=== PATIENT | female | born 1945 | race Caucasian/White ===

== ENCOUNTER → 2016-05-29 | Outpatient (CLI) | payer MEDICARE, OTHER ==
--- NOTE | 2016-05-29 09:22 | Diagnostic Imaging Report ---
PROCEDURE: US Gallbladder. TECHNIQUE: Multiple real-time grayscale images were obtained over the right upper quadrant in various projections. INDICATION: Diarrhea. The gallbladder appeared normal. The liver parenchyma appeared normal. There is no pathological dilatation of the intrahepatic or extrahepatic bile ducts. No ascites or perihepatic fluid collection. The right kidney is unobstructed. It is partially obscured from visualization by some adjacent overlying bowel gas. It measures at least 8.0 cm x 4.6 cm. Its adequately visualized cortex appeared normal in thickness and echotexture. It showed no solid or cystic mass or stone. IMPRESSION: Right kidney measures somewhat small, but this may be in part technical. It is unobstructed and appeared nonfocal and nonacute. There is no hepatobiliary abnormality, ascites, or fluid collection. Dictated by: Dictated on workstation # [id number]
== END ==
LOC: RAD 06:48
PROVIDERS: ATTEND Family Medicine
DX: R19.7 Diarrhea, unspecified (principal)
CPT/HCPCS: 76705

== ENCOUNTER → 2016-06-23 | Outpatient (CLI) | payer MEDICARE, OTHER ==
[~2016-06-23] MED LIST: CATHETER FLUSH 10 ML SYR IV PRN
[2016-06-23 10:08] LABS: BLOOD UREA NITROGEN 23 MG/DL (7-18); BUN/CREATININE RATIO 27; CREATININE SERUM 0.85 MG/DL (0.60-1.30); GFR ESTIMATED > 60
--- NOTE | 2016-06-23 12:54 | Diagnostic Imaging Report ---
EXAMINATION: HIDA with EF measurements Indication: Abdominal pain TECHNIQUE: After the intravenous administration of 5.2 mCi of Tc 99m Choletec, imaging over the abdomen was obtained. This was followed by administration of Ensure orally to stimulate intrinsic CCK secretion, followed by continued imaging with ejection fraction measured. FINDINGS: There is homogeneous uptake in the liver with prompt bile duct and gallbladder filling seen. Bowel activity is seen at 35 minutes. Based on further imaging and gallbladder area of interest activity measurements after the administration of Ensure, the gallbladder ejection fraction is estimated at 79%. IMPRESSION: 1. Normal hepatobiliary uptake and Gallbladder filling. 2. Normal gallbladder ejection fraction. Dictated by: Dictated on workstation # [id number]
== END ==
LOC: CARD 09:35
PROVIDERS: ATTEND Family Medicine
DX: R19.7 Diarrhea, unspecified (principal)
CPT/HCPCS: 36415; 78227; 82565; 84520

== ENCOUNTER → 2017-01-01 | Outpatient (CLI) | payer MEDICARE, OTHER ==
--- NOTE | 2017-01-01 13:55 | Diagnostic Imaging Report ---
EXAMINATION: DEXA scan. INDICATION: Osteopenia TECHNIQUE: Bone mineral density estimated based on dual energy radiography over the lumbar spine and femoral necks, was performed. FINDINGS: The lumbar spine T-score is -2. This is 4.7% increased density measurement compared to 12/01/2013. T score over the left femoral neck is -2.8 and on the right side is -3. This is 6% decreased density measurements compared to 2014 exam. IMPRESSION: Osteoporosis. Dictated by: Dictated on workstation # [id number]
--- NOTE | 2017-01-02 13:55 | Diagnostic Imaging Report ---
Bilateral screening mammogram 2D views with tomosynthesis. The current study was also evaluated with a Computer Aided Detection (CAD) system. INDICATION: Screening. No current complaints stated on the questionnaire. COMPARISON: . FINDINGS: The breasts are composed of heterogeneous fibroglandular tissue which may decrease mammographic sensitivity. Benign-appearing calcifications are seen. Allowing for technique and positional differences, no suspicious change is seen. IMPRESSION: Dense breasts with no definite change. ACR BI-RADS Category 2: Benign findings. Result letter will be mailed to the patient. Note: At least 10% of breast cancer is not imaged by mammography. Dictated on workstation # [id number]
== END ==
LOC: RAD 07:55
PROVIDERS: ATTEND Family Medicine
DX: Z12.31 Encounter for screening mammogram for malignant neoplasm of breast (principal); M81.0 Age-related osteoporosis without current pathological fracture
CPT/HCPCS: 77067; 77080

== ENCOUNTER → 2019-04-28 | Outpatient (CLI) | payer MEDICARE, OTHER ==
--- NOTE | 2019-04-28 11:37 | Diagnostic Imaging Report ---
INDICATION: Routine screening. COMPARISON: Comparison is made with prior mammograms from 01/01/2017 and 12/01/2013. TECHNIQUE: 2-D and 3-D bilateral screening mammography was performed. The current study was also evaluated with a Computer Aided Detection (CAD) system. 3-D tomosynthesis was also performed and reviewed. FINDINGS: Both breasts are heterogeneously dense, limiting the sensitivity of mammography. The parenchymal pattern is stable. No dominant mass or malignant-appearing microcalcifications are seen. There is an intraparenchymal lymph node in the upper-outer left breast. Axillae are unremarkable. IMPRESSION: No mammographic features suspicious for malignancy are identified. ACR BI-RADS Category 2: Benign findings. Result letter will be mailed to the patient. Note: At least 10% of breast cancer is not imaged by mammography. Dictated by: Dictated on workstation # [id number]
== END ==
LOC: RAD 09:09
PROVIDERS: ATTEND Nurse Practitioner Family
DX: Z12.31 Encounter for screening mammogram for malignant neoplasm of breast (principal)
CPT/HCPCS: 77067

== ENCOUNTER → 2021-02-20 | Outpatient (CLI) | payer MEDICARE, OTHER ==
--- NOTE | 2021-02-20 08:51 | Diagnostic Imaging Report ---
Indication: Chronic left knee pain. TIME OF EXAM: 8:39 AM 3 views of the left knee were obtained. Severe medial compartment degenerative change with joint space narrowing and marginal spurring is noted. There is more milder degenerative changes of the lateral compartment and patellofemoral compartment. Chondrocalcinosis of both the medial and lateral compartments is noted. No fracture, dislocation or effusion is seen. IMPRESSION: Degenerative changes. No acute abnormality is detected. Dictated by: Dictated on workstation # [id number]
== END ==
LOC: RAD FS 08:30
PROVIDERS: ATTEND Nurse Practitioner
DX: M17.12 Unilateral primary osteoarthritis, left knee (principal)
CPT/HCPCS: 73562

== ENCOUNTER → 2021-09-10 | Outpatient (CLI) | payer MEDICARE, OTHER ==
--- NOTE | 2021-09-10 16:26 | Diagnostic Imaging Report ---
INDICATION: Postmenopausal screening COMPARISON: 01/01/2017 FINDINGS: AP Spine L1-L4: [BMD (g/cm2): 1.012] [T-Score: -1.6] [Z-Score: 0.4] [BMD Previous: 0.958] [BMD % Change: 5.6] LT Hip Neck: [BMD (g/cm2): 0.738] [T-Score: -2.2] [Z-Score: -0.1] LT Hip Total: [BMD (g/cm2):0.655] [T-Score:-2.8] [Z-Score: -0.9] [BMD Previous: 0.657] [BMD % Change: -0.3] RT Hip Neck: [BMD (g/cm2):0.676] [T-Score:-2.6] [Z-Score:-0.6] RT Hip Total: [BMD (g/cm2):0.598] [T-score:-3.3] [Z-Score:-1.4] [BMD Previous:0.625] [BMD % Change:-4.3] *Indicates significant change from prior examination based on 95% confidence level. World Health Organization criteria for BMD interpretation classify patients as Normal (T-score at or above -1.0), Osteopenic (T-score between -1.0 and -2.5) or Osteoporotic (T-score at or below -2.5). LIMITATIONS AND MODIFICATION: None. FRACTURE RISK (FRAX SCORE): The ten year probability of (%): Major Osteoporotic Fracture: [14.6] Hip Fracture: [5.0] IMPRESSION: 1. Osteoporosis. 2. No significant change in bone mineral density since prior examination. 3. See below National Osteoporosis Foundation guidelines on when to potentially initiate pharmacologic therapy. Based on the National Osteoporosis Foundation Guidelines, pharmacologic treatment should be initiated in any of the following, unless clinical conditions suggest otherwise: * Any patient with prior fragility fracture of the hip or vertebrae. A spine fracture indicates 5X risk for subsequent spine fracture and 2X risk for subsequent hip fracture. * Osteoporosis (T-score <-2.5). * Postmenopausal women and men age 50 and older with low bone mass/osteopenia (T-score between -1.0 and -2.5) by DXA and 10-year major osteoporotic fracture greater than 20% or a 10-year probability of hip fracture greater than 3%. These fracture risks are supplied above in the FRAX score, if applicable. * Clinician judgement and/or patient preferences may indicate treatment for people with 10-year fracture probabilities above or below these levels. Dictated by: Dictated on workstation # [id number]
--- NOTE | 2021-09-11 08:32 | Diagnostic Imaging Report ---
Indication: Routine screening. Comparison is made with prior mammogram from 04/28/2019 and 01/01/2017. 2-D and 3-D bilateral screening mammography was performed with CAD. CAD is utilized. The current study was also evaluated with a Computer Aided Detection (CAD) system. Both breast are heterogeneously dense, limiting the sensitivity of mammography. The parenchymal pattern is stable. No dominant mass or malignant-appearing microcalcifications are seen. Benign calcifications on the left is noted. Axillae are unremarkable. IMPRESSION: BI-RADS Category 2 No mammographic features suspicious for malignancy are identified. ACR BI-RADS Category 2: Benign findings. Result letter will be mailed to the patient. Note: At least 10% of breast cancer is not imaged by mammography. Dictated by: Dictated on workstation # [id number]
== END ==
LOC: RAD 13:10
PROVIDERS: ATTEND Nurse Practitioner Family
DX: Z12.31 Encounter for screening mammogram for malignant neoplasm of breast (principal); Z13.820 Encounter for screening for osteoporosis; M81.0 Age-related osteoporosis without current pathological fracture
CPT/HCPCS: 77063; 77067; 77080

== ENCOUNTER → 2021-11-12 | Outpatient (CLI) | payer MEDICARE, OTHER ==
--- NOTE | 2021-11-12 16:29 | Diagnostic Imaging Report ---
INDICATION: Cough for the last 3 weeks. EXAMINATION: 2 view chest 11/12/2021 COMPARISON: 12/01/2013 2 views of the chest. The lungs are hyperinflated. There are no focal infiltrates or effusions. No pneumothorax. Coarsened markings likely due to areas of scar or atelectasis. Heart and pulmonary vasculature normal. There is no acute osseous abnormality. IMPRESSION: 1. Chronic findings with no superimposed acute cardiopulmonary process. Dictated by: Dictated on workstation # [id number]
== END ==
LOC: RAD 11:16
PROVIDERS: ATTEND Nurse Practitioner Family
DX: R05.9 Cough, unspecified (principal)
CPT/HCPCS: 71046

== ENCOUNTER → 2022-12-29 | Outpatient (CLI) | payer MEDICARE, OTHER ==
[~2022-12-29] MED LIST changes: -CATHETER FLUSH 10 ML SYR IV PRN; +HOLD METFORMIN - RECEIVED CONTRAST 20 ML VIAL IV SCH; +IOHEXOL 350 MG/ML 100 ML (OMNIPAQUE 350) VIAL IV ONE; +NS 100 ML (IVPB) BAG IV ONE
--- NOTE | 2022-12-29 09:18 | Diagnostic Imaging Report ---
Procedure: CT chest with contrast only. Technique: Multiple contiguous axial images were obtained through the chest after administration of intravenous contrast. Auto Exposure Controls were utilized during the CT exam to meet ALARA standards for radiation dose reduction. Date: December 29, 2022. Indication: 77-year-old female, shortness of breath. Pulmonary nodule. Comparisons: Chest radiographs November 12, 2021. Findings: There is cavitary consolidation in the right upper lobe on axial image 47 which is nodular in appearance and measures approximately 2.0 cm in size. There is right upper lobe bronchiectasis. There is additional opacification along the dilated right upper lobe bronchi and additional areas of patchy alveolar consolidation in the right upper lobe. There is right middle lobe bronchiectasis and bronchiectasis in the lingula. There is mild mosaic lung attenuation which may reflect small airways disease and air trapping. There is mild atelectasis in the left upper lobe. There is no pneumothorax. There is no pleural effusion. The central airways are patent. There are areas of mild scarring. The heart is not enlarged. There is no identified pericardial effusion. There is no identified central pulmonary embolus. There is a right paratracheal lymph node which measures 10 mm in short axis on axial image 49. Additional prominent paratracheal lymph nodes are also noted. There is no identified abnormally enlarged hilar or axillary lymph node meeting CT size criteria for adenopathy. There are atherosclerotic calcifications. There is no identified acute bony abnormality. Impression: 1. Cavitary nodular consolidation in the right upper lobe with additional consolidation along dilated right upper lobe bronchi and bronchiectasis as well as additional patchy multifocal airspace consolidation in the right upper lobe. This may reflect multifocal pneumonia with cavitary area potentially relating to necrotizing pneumonia, abscess, or less likely malignancy. 2. Right upper lobe, right middle lobe, and lingular bronchiectasis with mild multifocal scarring. 3. Abnormally enlarged paratracheal lymph nodes which may be reactive. Dictated by: Dictated on workstation # [id number]
== END ==
LOC: RAD 07:48
PROVIDERS: ATTEND Nurse Practitioner Family
DX: J44.1 Chronic obstructive pulmonary disease with (acute) exacerbation (principal); R53.83 Other fatigue; R91.1 Solitary pulmonary nodule; J44.0 Chronic obstructive pulmonary disease with (acute) lower respiratory infection; R06.1 Stridor; J18.1 Lobar pneumonia, unspecified organism; J47.9 Bronchiectasis, uncomplicated
CPT/HCPCS: 71260

== ENCOUNTER 2023-01-14 10:39 | Outpatient (RCR) | payer MEDICARE, OTHER | END 2023-01-29 | disposition home or self-care (01) | LOC: LAB 10:39 | PROVIDERS: ATTEND Internal Medicine Critical Care Medicine | DX: R05.1 Acute cough (principal) | CPT/HCPCS: 36415; 86480; 87015; 87116; 87206 ==

== ENCOUNTER → 2023-02-05 | Outpatient (CLI) | payer MEDICARE, OTHER ==
[2023-02-05 08:20] LABS: HEMATOCRIT 49 % (35-52); MEAN CORPUSCULAR HEMOGLOBIN 31 pg (25-34); MEAN CORPUSCULAR HGB CONC 33 g/dL (32-36); MEAN CORPUSCULAR VOLUME 95 fL (80-99); MEAN PLATELET VOLUME 9.4 fL (9.0-12.2); PLATELET COUNT 361 10^3/uL (130-400); WHITE BLOOD COUNT 21.9 10^3/uL (4.3-11.0)
[2023-02-05 08:41] LABS: ALBUMIN 3.4 GM/DL (3.2-4.5)
[2023-02-05 08:42] LABS: POTASSIUM 4.2 MMOL/L (3.6-5.0)
[2023-02-05 08:44] LABS: TOTAL PROTEIN 7.4 GM/DL (6.4-8.2)
[2023-02-05 08:46] LABS: BILIRUBIN,TOTAL 0.5 MG/DL (0.1-1.0)
[2023-02-05 08:48] LABS: CREATININE SERUM 0.93 MG/DL (0.60-1.30)
[2023-02-05 08:50] LABS: BILIRUBIN,DIRECT 0.2 MG/DL (0.0-0.3); BILIRUBIN,INDIRECT 0.3 MG/DL
== END ==
LOC: LAB 08:08
PROVIDERS: ATTEND Nurse Practitioner Family
DX: R05.1 Acute cough (principal)
CPT/HCPCS: 36415; 80048; 80076; 85027